=== PATIENT | male | born 1980 | race African-American/Black ===

== ENCOUNTER 2019-04-22 09:34 | Emergency (ER) | payer SELFPAY ==
--- NOTE | 2019-04-22 09:55 | ER Document Report ---
ED Medical Screen (RME) - General Chief Complaint: Epigastric Pain Stated Complaint: ABDOMINAL PAIN, SIDE PAIN Time Seen by Provider: 04/22/19 09:48 Primary Care Provider: BERT PARKER [Primary Care Provider] - Follow up as needed Mode of Arrival: Ambulatory Information source: Patient Notes: Patient is a 39-year-old male with past medical history of pancreatitis pres enting to the emergency department with abdominal pain and dysuria. Patient reports he has pain in the epigastric area as well as the lower abdomen. He reports over the last 3 days he has developed a sharp stabbing pain when he urinates. He states that his symptoms are very similar to when he had pancreatitis in the past. Patient denies any fevers, denies any vomiting but does report that he coughed up blood a few times. Exam: Abdomen nontender with palpation. I have greeted and performed a rapid initial assessment of this patient. A comprehensive ED assessment and evaluation of the patient, analysis of test results and completion of the medical decision making process will be conducted by additional ED providers. I have specifically instructed the patient or family members with the patient to immediately return to any nursing staff should anything change in the patient's condition or with their chief complaint. This medical record was dictated with voice recognizing software. There may be grammatical, syntax errors that are unintended. TRAVEL OUTSIDE OF THE [place] IN LAST 30 DAYS: No - Related Data Allergies/Adverse Reactions: aspirin Allergy (Verified 04/22/19 09:44) ibuprofen Allergy (Verified 04/22/19 09:44) Past Medical History - Past Medical History Cardiac Medical History: Reports: Hx Hypertension Skin Medical History: Denies Hx MRSA Psychiatric Medical History: Reports: Hx Bipolar Disorder Past Surgical History: Reports: Hx Appendectomy, Hx Bowel Surgery - hernia repair, mesh [facility] on 10-16-12, Hx Orthopedic Surgery - right arm - Immunizations Hx Diphtheria, Pertussis, Tetanus Vaccination: Yes Physical Exam - Vital signs Vitals: Temp Pulse Resp BP Pulse Ox 98.1 F 82 18 143/97 H 96 04/22/19 09:46 04/22/19 09:46 04/22/19 09:46 04/22/19 09:46 04/22/19 09:46 Course - Vital Signs Vital signs: Temp Pulse Resp BP Pulse Ox 98.1 F 82 18 143/97 H 96 04/22/19 09:46 04/22/19 09:46 04/22/19 09:46 04/22/19 09:46 04/22/19 09:46 Doctor's Discharge - Discharge Referrals: KEITH,NO [Primary Care Provider] - Follow up as needed
[2019-04-22 10:46] LABS: ABSOLUTE BASOPHILS # (AUTO) 0.1 10^3/uL (0.0-0.2); ABSOLUTE EOSINOPHILS # (AUTO) 0.2 10^3/uL (0.0-0.6); ABSOLUTE LYMPHOCYTES (AUTO) 2.8 10^3/uL (0.5-4.7); ABSOLUTE MONOCYTES (AUTO) 0.8 10^3/uL (0.1-1.4); ABSOLUTE NEUT (AUTO) 8.8 10^3/uL (1.7-8.2); BASOPHILS % (AUTO) 0.5 % (0-2); EOSINOPHILS % (AUTO) 1.8 % (0-6); HEMATOCRIT 47.8 % (37.9-51.0); HEMOGLOBIN 16.3 g/dL (13.5-17.0); MEAN CORPUSCULAR HEMOGLOBIN 27.8 pg (27.0-33.4); MEAN CORPUSCULAR HGB CONC 34.2 g/dL (32.0-36.0); MEAN CORPUSCULAR VOLUME 81 fl (80-97); MONOCYTES % (AUTO) 6.6 % (3-13); PLATELET COUNT 264 10^3/uL (150-450); RED BLOOD COUNT 5.88 10^6/uL (4.35-5.55); SEGMENTED NEUTROPHILS % (AUTO) 69.1 % (42-78); TOTAL CELLS COUNTED % (AUTO) 100 %; WHITE BLOOD COUNT 12.7 10^3/uL (4.0-10.5)
[2019-04-22 11:06] LABS: ALBUMIN 4.6 g/dL (3.5-5.0); ALKALINE PHOSPHATASE 87 U/L (38-126); ANION GAP 10 (5-19); ASPARTATE AMINO TRANSFERASE 29 U/L (17-59); BILIRUBIN,DIRECT 0.3 mg/dL (0.0-0.4); BILIRUBIN,TOTAL 0.6 mg/dL (0.2-1.3); BLOOD UREA NITROGEN 11 mg/dL (7-20); CALCIUM 9.8 mg/dL (8.4-10.2); CARBON DIOXIDE 24 mmol/L (22-30); CHLORIDE 103 mmol/L (98-107); GLUCOSE 114 mg/dL (75-110); POTASSIUM 4.5 mmol/L (3.6-5.0)
[2019-04-22 11:23] LABS: APPEARANCE,URINE CLEAR; BILIRUBIN,URINE NEGATIVE (NEGATIVE); COLOR,URINE YELLOW; GLUCOSE, URINE NEGATIVE (NEGATIVE); KETONES,URINE NEGATIVE (NEGATIVE); LEUKOCYTE ESTERASE,URINE NEGATIVE (NEGATIVE); NITRITE,URINE NEGATIVE (NEGATIVE); PROTEIN,URINE NEGATIVE (NEGATIVE); URINE SPECIFIC GRAVITY 1.017; UROBILINOGEN,URINE NEGATIVE mg/dL (<2.0)
[2019-04-22] MEDS ORDERED: ONDANSETRON HCL INJ/PF 4 MG/2 ML SDV IV ONE (11:53)
[2019-04-22] MEDS ORDERED: NORMAL SALINE 1000 ML 1,000 ML IV ONE (11:53)
[2019-04-22] MEDS ORDERED: MORPHINE SULFATE 10 MG/ML INJ IV ONE (11:54)
--- NOTE | 2019-04-22 13:51 | ER Document Report ---
ED General - General Chief Complaint: Epigastric Pain Stated Complaint: ABDOMINAL PAIN, SIDE PAIN Time Seen by Provider: 04/22/19 09:48 Primary Care Provider: [facility] [Provider Group] - Follow up in 1 week (for PCP follow up) APRIL KOCH MD [ACTIVE STAFF] - Follow up in 1 week (for GI follow up) Mode of Arrival: Ambulatory TRAVEL OUTSIDE OF THE [place] IN LAST 30 DAYS: No - HPI Notes: 39-year-old male with history of peptic ulcer disease, pancreatitis, diabetes to the emergency department with complaints of epigastric abdominal pain with nausea and "spitting "since last week. He states that this feels a lot like his pancreatitis. He states that he has seen some blood streaked "spit". He states that he typically takes Protonix but he ran out about 2 weeks ago. He does admit that directly before his abdominal pain starting that he had a very fatty meal of fried chicken. Patient has a history of using alcohol but states that currently he does not. Denies any fevers, chills, chest pain, shortness of breath, diarrhea, urinary complaints. States he was seen a GI specialist in [place] and is supposed to go back for follow-up but he cannot because he does not have insurance. - Related Data Allergies/Adverse Reactions: aspirin Allergy (Verified 04/22/19 09:44) ibuprofen Allergy (Verified 04/22/19 09:44) Past Medical History - General Information source: Patient, Relative - Social History Smoking Status: Current Every Day Smoker Frequency of alcohol use: former Drug Abuse: None Family History: Reviewed & Not Pertinent Patient has suicidal ideation: No Patient has homicidal ideation: No - Past Medical History Cardiac Medical History: Reports: Hx Hypertension Endocrine Medical History: Reports: Hx Diabetes Mellitus Type 2 Renal/ Medical History: Denies: Hx Peritoneal Dialysis Skin Medical History: Denies Hx MRSA Psychiatric Medical History: Reports: Hx Bipolar Disorder Past Surgical History: Reports: Hx Appendectomy, Hx Bowel Surgery - hernia repair, mesh [facility] on 10-16-12, Hx Orthopedic Surgery - right arm - Immunizations Hx Diphtheria, Pertussis, Tetanus Vaccination: Yes Review of Systems - Review of Systems Constitutional: See HPI, Malaise. denies: Chills, Fever EENT: No symptoms reported Cardiovascular: denies: Chest pain, Palpitations, Orthopnea, Dyspnea, Syncope, Dizziness, Lightheaded Respiratory: denies: Cough, Short of breath Gastrointestinal: Abdominal pain, Nausea, Blood in vomit. denies: Diarrhea, Vomiting, Black stools, Rectal bleeding Genitourinary: No symptoms reported Male Genitourinary: No symptoms reported Musculoskeletal: No symptoms reported Skin: No symptoms reported Hematologic/Lymphatic: No symptoms reported Neurological/Psychological: No symptoms reported -: Yes All other systems reviewed and negative Physical Exam - Vital signs Vitals: Temp Pulse Resp BP Pulse Ox 98.1 F 82 18 143/97 H 96 04/22/19 09:46 04/22/19 09:46 04/22/19 09:46 04/22/19 09:46 04/22/19 09:46 Interpretation: Hypertensive - General General appearance: Appears well, Alert - HEENT Head: Normocephalic, Atraumatic Eyes: Normal Pupils: PERRL Ears: Normal External canal: Normal Tympanic membrane: Normal Sinus: Normal Nasal: Normal Mouth/Lips: Normal Mucous membranes: Normal Pharynx: Normal Neck: Normal - Respiratory Respiratory status: No respiratory distress Chest status: Nontender Breath sounds: Normal Chest palpation: Normal - Cardiovascular Rhythm: Regular Heart sounds: Normal auscultation Murmur: No - Abdominal Inspection: Obese Distension: No distension Bowel sounds: Normal Tenderness: Tender - Positive tenderness to palpation to the epigastrium. No tenderness to palpation over the right upper quadrant, left upper quadrant, left lower quadrant, right lower quadrant. There is no fluid wave, no tympany, no distention. There is no rebound guarding or other signs to suggest peritonitis. - Back Back: Normal, Nontender. No: CVA tenderness - Neurological Neuro grossly intact: Yes Cognition: Normal Orientation: AAOx4 Spray Coma Scale Eye Opening: Spontaneous Spray Coma Scale Verbal: Oriented [place] Coma Scale Motor: Obeys Commands [place] Coma Scale Total: 15 Speech: Normal Motor strength normal: LUE, RUE, LLE, RLE Sensory: Normal - Psychological Associated symptoms: Normal affect, Normal mood - Skin Skin Temperature: Warm Skin Moisture: Dry Skin Color: Normal Course - Re-evaluation Re-evalutation: 04/22/19 Abdomen Ultrasound 04/22/19 12:38 IMPRESSION: NORMAL RIGHT UPPER QUADRANT ULTRASOUND. Laboratory 04/22/19 04/22/19 04/22/19 10:20 10:20 10:20 WBC 12.7 H RBC 5.88 H Hgb 16.3 Hct 47.8 MCV 81 MCH 27.8 MCHC 34.2 RDW 15.0 H Plt Count 264 Seg Neutrophils % 69.1 Lymphocytes % 22.0 Monocytes % 6.6 Eosinophils % 1.8 Basophils % 0.5 Absolute Neutrophils 8.8 H Absolute Lymphocytes 2.8 Absolute Monocytes 0.8 Absolute Eosinophils 0.2 Absolute Basophils 0.1 Sodium 137.1 Potassium 4.5 Chloride 103 Carbon Dioxide 24 Anion Gap 10 BUN 11 Creatinine 1.12 Est GFR ( Amer) > 60 Est GFR (Non-Af Amer) > 60 Glucose 114 H Calcium 9.8 Total Bilirubin 0.6 Direct Bilirubin 0.3 Neonat Total Bilirubin Not Reportable Neonat Direct Bilirubin Not Reportable Neonat Indirect Bili Not Reportable AST 29 ALT 39 Alkaline Phosphatase 87 Total Protein 8.0 Albumin 4.6 Lipase 626.0 H Urine Color YELLOW Urine Appearance CLEAR Urine pH 5.0 Ur Specific [place] 1.017 Urine Protein NEGATIVE Urine Glucose (UA) NEGATIVE Urine Ketones NEGATIVE Urine Blood SMALL H Urine Nitrite NEGATIVE Urine Bilirubin NEGATIVE Urine Urobilinogen NEGATIVE Ur Leukocyte Esterase NEGATIVE Urine WBC (Auto) 2 Urine RBC (Auto) 1 Urine Mucus (Auto) RARE Urine Ascorbic Acid NEGATIVE Impression: Pancreatitis, mild at bestlipase is in 600s. Patient has a white count of 12 but he has no fever, tachycardia, hypotension, tachypnea, or hypoxi a. He is feeling much better after pain control. He is tolerating clear liquids without any issues. Plan will be to discharge patient home and have him take down clear liquids for the next 24 to 48 hours. Will provide pain control and nausea relief. He has a reassuring H&H despite his history of blood suspect "spit". We will also send home with Protonix. I have given him information for GI specialist locally. We will have him follow-up with primary care. He is encouraged to return here if he has any worsening pain, intractable vomiting, intractable pain, fevers, chills, chest pain, shortness of breath, passing out. Patient agrees with the plan - Vital Signs Vital signs: Temp Pulse Resp BP Pulse Ox 98.0 F 64 16 149/95 H 100 04/22/19 15:54 04/22/19 15:54 04/22/19 15:54 04/22/19 15:54 04/22/19 15:54 - Laboratory Result Diagrams: 04/22/19 10:20 04/22/19 10:20 Laboratory results interpreted by me: 04/22/19 04/22/19 04/22/19 10:20 10:20 10:20 WBC 12.7 H RBC 5.88 H RDW 15.0 H Absolute Neutrophils 8.8 H Glucose 114 H Lipase 626.0 H Urine Blood SMALL H - Diagnostic Test Radiology reviewed: Image reviewed, Reports reviewed Discharge - Discharge Clinical Impression: Epigastric pain, History of peptic ulcer disease Pancreatitis Qualifiers: Chronicity: acute Pancreatitis type: unspecified pancreatitis type Acute pancreatitis complication: unspecified Qualified Code(s): K85.90 - Acute pancreatitis without necrosis or infection, unspecified Condition: Stable Disposition: HOME, SELF-CARE Instructions: Pancreatitis ([facility]) Additional Instructions: CLEAR LIQUIDS ONLY FOR THE NEXT 24-48 HOURS. PUSH FLUIDS. TAKE MEDICINES PRESCRIBED. FOLLOW UP WITH PRIMARY CARE AND GI WITHOUT FAIL. RETURN IMMEDIATELY IF WORSENING PAIN, FEVERS, CHILLS, CHEST PAIN, INTRACTABLE VOMITING, NEHEMIAH BLOOD IN VOMIT, OR ANY OTHER COMPLAINTS. Prescriptions: Ondansetron [Zofran Odt 4 mg Tablet] 1 - 2 tab PO Q4H PRN #15 tab.rapdis PRN Reason: For Nausea/Vomiting Oxycodone HCl/Acetaminophen [Percocet 5-325 mg Tablet] 1 - 2 tab PO Q6H PRN #10 tablet PRN Reason: Pantoprazole Sodium [Protonix] 40 mg PO BID #30 tablet. Referrals: APRIL KOCH MD [ACTIVE STAFF] - Follow up in 1 week (for GI follow up) [facility] [Provider Group] - Follow up in 1 week (for PCP follow up)
--- NOTE | 2019-04-22 15:37 | RADIOLOGY REPORT (SQ) ---
EXAM DESCRIPTION: U/S ABDOMEN LIMITED W/O DOP COMPLETED DATE/TIME: 04/22/2019 3:08 pm REASON FOR STUDY: abd pain, elevated lipase COMPARISON: None. TECHNIQUE: Dynamic and static grayscale images acquired of the abdomen and recorded on PACS. Additio nal selected color Doppler and spectral images recorded. LIMITATIONS: Midline bowel gas FINDINGS: PANCREAS: Midline pancreas unremarkable LIVER: No masses. Echotexture normal. LIVER VASCULATURE: Normal directional flow of the main portal vein and hepatic veins. GALLBLADDER: No gallstones. There are prominent folds along the gallbladder fundus with a Phrygian c ap. No pericholecystic fluid. No gross gallbladder wall thickening. ULTRASOUND-DETECTED WELLS'S SIGN: Negative. INTRAHEPATIC DUCTS AND COMMON DUCT: CBD and intrahepatic ducts normal caliber. No filling defects. INFERIOR VENA CAVA: Normal flow. AORTA: No aneurysm. RIGHT KIDNEY: Normal size. Normal echogenicity. No solid or suspicious masses. No hydronephrosis. No calcifications. PERITONEAL AND RIGHT PLEURAL SPACE: No ascites or effusions. OTHER: No other significant findings. IMPRESSION: NORMAL RIGHT UPPER QUADRANT ULTRASOUND. TECHNICAL DOCUMENTATION: JOB ID: [id number] [employer]- All Rights Reserved Reading location - IP/workstation name: [email or web address]
[2019-04-22 15:58] VITALS: BP 149/95
== END 2019-04-22 15:58 | disposition home or self-care (01) ==
LOC: ER 09:34
DX: K85.90 Acute pancreatitis without necrosis or infection, unspecified (principal); R10.13 Epigastric pain; R10.816 Epigastric abdominal tenderness; R04.2 Hemoptysis; K92.0 Hematemesis; I10 Essential (primary) hypertension; E11.9 Type 2 diabetes mellitus without complications; Z87.11 Personal history of peptic ulcer disease; Z88.6 Allergy status to analgesic agent; Z90.49 Acquired absence of other specified parts of digestive tract
CPT/HCPCS: 99284; 96361; 96374; 96375; 36415; 83690; 85025; 80053; 81001; 76705; J2270; J2405; J7030

== ENCOUNTER 2019-12-10 18:55 | Emergency (ER) | payer SELFPAY ==
[2019-12-10] MEDS ORDERED: NORMAL SALINE 1000 ML 1,000 ML IV ONE (19:13)
--- NOTE | 2019-12-10 19:13 | ER Document Report ---
ED Medical Screen (RME) - General Chief Complaint: Epigastric Pain Stated Complaint: ABDOMINAL PAIN/SWOLLEN THROAT Time Seen by Provider: 12/10/19 19:05 Notes: Patient is a 39-year-old male who presents the emergency department with a chief complaint of epigastric pain. He states that his pain started in his mid epigastric area and pain has now traveled to his throat area. Denies any difficulty breathing. Patient does have history of pancreatitis in the past. Yesterday he drinks 2 40 ounce natural light beers. He had not drank for a while, but ended up drinking last night. He has history of alcohol abuse. He is a current everyday smoker, but at 5 cigarettes a day. Patient is also a diabetic and has hypertension, but does not take medications. Exam: Tender mid epigastric area. I have greeted and performed a rapid initial assessment of this patient. A comprehensive ED assessment and evaluation of the patient, analysis of test results and completion of medical decision making process will be conducted by an additional ED providers. TRAVEL OUTSIDE OF THE [place] IN LAST 30 DAYS: No - Related Data Allergies/Adverse Reactions: aspirin Adverse Reaction (Verified 12/10/19 19:00) has throat ulcers ibuprofen Adverse Reaction (Verified 12/10/19 19:00) has throat ulcers Home Medications: denies Past Medical History - Social History Chew tobacco use (# tins/day): No Frequency of alcohol use: Rare Drug Abuse: None - Past Medical History Cardiac Medical History: Reports: Hx Hypertension Endocrine Medical History: Reports: Hx Diabetes Mellitus Type 2 Renal/ Medical History: Denies: Hx Peritoneal Dialysis Skin Medical History: Denies Hx MRSA Psychiatric Medical History: Reports: Hx Bipolar Disorder Past Surgical History: Reports: Hx Appendectomy, Hx Bowel Surgery - hernia repair, mesh [facility] on 10-16-12, Hx Orthopedic Surgery - right arm - Immunizations Hx Diphtheria, Pertussis, Tetanus Vaccination: Yes Physical Exam - Vital signs Vitals: Temp Pulse Resp BP Pulse Ox 98.4 F 113 H 18 169/109 H 98 12/10/19 18:58 12/10/19 18:58 12/10/19 18:58 12/10/19 18:58 12/10/19 18:58 Course - Vital Signs Vital signs: Temp Pulse Resp BP Pulse Ox 98.4 F 113 H 18 169/109 H 98 12/10/19 18:58 12/10/19 18:58 12/10/19 18:58 12/10/19 18:58 12/10/19 18:58
[2019-12-10] MEDS ORDERED: METOCLOPRAMIDE HCL ORAL SOLN 10 MG/10 ML UDCUP PO ONE (19:47)
[2019-12-10] MEDS ORDERED: LIDOCAINE 2% VISCOUS SOLN 15 ML UDCUP PO ONE (19:47)
[2019-12-10] MEDS ORDERED: MAG HYDROX/AL HYDROX/SIMETH SUSP 30 ML UDCUP PO ONE (19:47)
[2019-12-10] MEDS ORDERED: MORPHINE SULFATE 10 MG/ML INJ IV ONE (19:48)
[2019-12-10 19:52] LABS: APPEARANCE,URINE CLEAR; BILIRUBIN,URINE NEGATIVE (NEGATIVE); COLOR,URINE YELLOW; GLUCOSE, URINE NEGATIVE (NEGATIVE); KETONES,URINE NEGATIVE (NEGATIVE); LEUKOCYTE ESTERASE,URINE NEGATIVE (NEGATIVE); NITRITE,URINE NEGATIVE (NEGATIVE); PROTEIN,URINE NEGATIVE (NEGATIVE); UROBILINOGEN,URINE NEGATIVE mg/dL (<2.0)
--- NOTE | 2019-12-10 20:14 | RADIOLOGY REPORT (SQ) ---
CLINICAL INDICATION: epigastric pain. TECHNIQUE: A single portable AP view was obtained of the chest at 1947 hours. COMPARISON: None. FINDINGS: The cardiomediastinal silhouette is prominent. The lungs are grossly clear. No evidence of effusion or pneumothorax. The visualized bones are unremarkable. Mild chronic change IMPRESSION: No evidence of active intrathoracic disease. Presumed chronic streaky change
[2019-12-10 20:30] LABS: ABSOLUTE BASOPHILS # (AUTO) 0.1 10^3/uL (0.0-0.2); ABSOLUTE EOSINOPHILS # (AUTO) 0.2 10^3/uL (0.0-0.6); ABSOLUTE LYMPHOCYTES (AUTO) 2.5 10^3/uL (0.5-4.7); ABSOLUTE MONOCYTES (AUTO) 1.2 10^3/uL (0.1-1.4); ABSOLUTE NEUT (AUTO) 12.1 10^3/uL (1.7-8.2); BASOPHILS % (AUTO) 0.5 % (0-2); EOSINOPHILS % (AUTO) 1.3 % (0-6); HEMATOCRIT 44.4 % (37.9-51.0); HEMOGLOBIN 15.8 g/dL (13.5-17.0); LYMPHOCYTES % (AUTO) 15.6 % (13-45); MEAN CORPUSCULAR HEMOGLOBIN 29.1 pg (27.0-33.4); MEAN CORPUSCULAR HGB CONC 35.5 g/dL (32.0-36.0); MEAN CORPUSCULAR VOLUME 82 fl (80-97); MONOCYTES % (AUTO) 7.5 % (3-13); PLATELET COUNT 258 10^3/uL (150-450); RED BLOOD COUNT 5.42 10^6/uL (4.35-5.55); RED CELL DISTRIBUTION WIDTH 15.6 % (11.5-14.0); SEGMENTED NEUTROPHILS % (AUTO) 75.1 % (42-78); TOTAL CELLS COUNTED % (AUTO) 100 %; WHITE BLOOD COUNT 16.1 10^3/uL (4.0-10.5)
[2019-12-10 20:43] LABS: ALBUMIN 4.2 g/dL (3.5-5.0); ALKALINE PHOSPHATASE 125 U/L (38-126); ANION GAP 9 (5-19); ASPARTATE AMINO TRANSFERASE 21 U/L (17-59); BILIRUBIN,DIRECT 0.3 mg/dL (0.0-0.4); BILIRUBIN,TOTAL 0.4 mg/dL (0.2-1.3); BLOOD UREA NITROGEN 15 mg/dL (7-20); CALCIUM 9.7 mg/dL (8.4-10.2); CARBON DIOXIDE 24 mmol/L (22-30); CHLORIDE 104 mmol/L (98-107); GLUCOSE 104 mg/dL (75-110); POTASSIUM 4.3 mmol/L (3.6-5.0); TOTAL PROTEIN 7.7 g/dL (6.3-8.2)
--- NOTE | 2019-12-10 20:51 | ER Document Report ---
ED General - General Chief Complaint: Epigastric Pain Stated Complaint: ABDOMINAL PAIN/SWOLLEN THROAT Time Seen by Provider: 12/10/19 19:05 Mode of Arrival: Ambulatory Information source: Patient TRAVEL OUTSIDE OF THE [place] IN LAST 30 DAYS: No - HPI Onset: Other - since this morning around 8am Onset/Duration: Gradual Quality of pain: Sharp Severity: Moderate Associated symptoms: Sore throat, Other - abdominal pain Exacerbated by: Food Relieved by: Denies Similar symptoms previously: Yes - with pancreatitis flares in the past Recently seen / treated by doctor: No Notes: 39 year old male with a history of Chronic Pancreatitis, GERD/Peptic Ulcer Disease, Hernia Surgeries, Appendectomy here for epigastric abdominal pain which started this morning. The patient says he hasnt drank in alcohol in about 6 months and last night he had two large beers. The patient denies fevers, chills, sweats, nausea, vomiting, diarrhea. The patient says this feels like pancreatitis to him. The patient also has had a sore throat and he feels like his throat is slightly swollen for the last couple days. The patient says his child recently had Strep Throat in the last 1-2 weeks. - Related Data Allergies/Adverse Reactions: aspirin Adverse Reaction (Verified 12/10/19 19:00) has throat ulcers ibuprofen Adverse Reaction (Verified 12/10/19 19:00) has throat ulcers Home Medications: denies Past Medical History - General Information source: Patient - Social History Smoking Status: Current Every Day Smoker Chew tobacco use (# tins/day): No Frequency of alcohol use: Rare Drug Abuse: None Family History: Reviewed & Not Pertinent Patient has suicidal ideation: No Patient has homicidal ideation: No - Past Medical History Cardiac Medical History: Reports: Hx Hypercholesterolemia, Hx Hypertension Endocrine Medical History: Reports: Hx Diabetes Mellitus Type 2 Renal/ Medical History: Denies: Hx Peritoneal Dialysis GI Medical History: Reports: Hx Hiatal Hernia Skin Medical History: Denies Hx MRSA Psychiatric Medical History: Reports: Hx Bipolar Disorder Past Surgical History: Reports: Hx Appendectomy, Hx Bowel Surgery - hernia repair, mesh [facility] on 10-16-12, Hx Orthopedic Surgery - right arm - Immunizations Hx Diphtheria, Pertussis, Tetanus Vaccination: Yes Review of Systems - Review of Systems Constitutional: No symptoms reported EENT: Throat pain Cardiovascular: No symptoms reported Gastrointestinal: Abdominal pain - epigastric Genitourinary: No symptoms reported Male Genitourinary: No symptoms reported Musculoskeletal: No symptoms reported Skin: No symptoms reported Hematologic/Lymphatic: No symptoms reported Neurological/Psychological: No symptoms reported -: Yes All other systems reviewed and negative Physical Exam - Vital signs Vitals: Temp Pulse Resp BP Pulse Ox 98.4 F 113 H 18 169/109 H 98 12/10/19 18:58 12/10/19 18:58 12/10/19 18:58 12/10/19 18:58 12/10/19 18:58 - Notes Notes: GENERAL: Well-appearing, well-nourished and in no acute distress. HEAD: Atraumatic, normocephalic. EYES: Pupils equal round and reactive to light, extraocular movements intact, sclera anicteric, conjunctiva are normal. ENT: Nares patent, oropharynx is erythematous and tonsils are mildly swollen but without exudates. Uvular normal and midline. Moist mucous membranes. NECK: Normal range of motion, supple without lymphadenopathy or JVD. LUNGS: Breath sounds clear to auscultation bilaterally and equal. No wheezes rales or rhonchi. HEART: Regular rate and rhythm without murmurs, rubs or gallops. ABDOMEN: Soft, mild epigastric tenderness, normoactive bowel sounds. No guarding, no rebound. No masses appreciated. EXTREMITIES: Normal range of motion, no pitting or edema. No clubbing or cyanosis. NEUROLOGICAL: Cranial nerves II through XII grossly intact. Normal speech, normal gait. PSYCH: Normal mood, normal affect. SKIN: Warm, Dry, normal turgor, no rashes or lesions noted. Course - Re-evaluation Re-evalutation: 12/10/19 21:03 The patient is here for epigastric pain which he says is consistent with chronic pancreatitis. He felt much better after IV Fluids, IV Morphine and a GI Cocktail. The patient also has a strep throat which was treated with IM Penicillin. Patient told to follow up with a PCP and to stop drinking. 12/10/19 21:34 Patient has no abdominal pain at time of discharge. - Vital Signs Vital signs: Temp Pulse Resp BP Pulse Ox 98.4 F 113 H 18 169/109 H 98 12/10/19 18:58 12/10/19 18:58 12/10/19 18:58 12/10/19 18:58 12/10/19 18:58 - Laboratory Result Diagrams: 12/10/19 19:55 12/10/19 19:55 Laboratory results interpreted by me: 12/10/19 12/10/19 12/10/19 19:20 19:55 19:55 WBC 16.1 H RDW 15.6 H Absolute Neuts (auto) 12.1 H Sodium 136.6 L Lipase 659.6 H Urine Blood MODERATE H - Diagnostic Test Radiology reviewed: Image reviewed, Reports reviewed - EKG Interpretation by Me EKG shows normal: Sinus rhythm, Intervals, QRS Complexes Rate: Normal Rhythm: NSR [place]/QRS: Left axis deviation Discharge - Discharge Clinical Impression: Strep throat Pancreatitis Qualifiers: Chronicity: chronic Pancreatitis type: alcohol induced Qualified Code(s): K86.0 - Alcohol-induced chronic pancreatitis Condition: Stable Disposition: HOME, SELF-CARE Instructions: Strep Throat ([facility]), Pancreatitis ([facility]) Additional Instructions: Use Tylenol for pain and eat a bland diet in the days to come. Refrain from drinking alcohol. Follow up with your primary care doctor. If you dont have primary care doctor, follow up with one of the clinics listed in your paperwork. Referrals: RICHARD FARAH MD [COMMUNITY BASED STAFF] - Follow up as needed
[2019-12-10] MEDS ORDERED: PENICILLIN G BENZATHINE 1.2 MILLION UNIT/2 ML DISP.SYRIN IM ONE (21:28)
[2019-12-10 22:21] VITALS: BP 137/92
--- NOTE | 2019-12-11 08:24 | EKG REPORT ---
SEVERITY:- BORDERLINE ECG - SINUS TACHYCARDIA BORDERLINE LEFT AXIS DEVIATION LA ABNORMALITY : Confirmed by: Kenan Corral MD 11-Dec-2019 08:23:15
== END 2019-12-10 22:21 | disposition home or self-care (01) ==
LOC: ER 18:55
DX: J02.0 Streptococcal pharyngitis (principal); K86.0 Alcohol-induced chronic pancreatitis; R10.13 Epigastric pain; F17.200 Nicotine dependence, unspecified, uncomplicated; I10 Essential (primary) hypertension; E78.00 Pure hypercholesterolemia, unspecified; E11.9 Type 2 diabetes mellitus without complications; Z88.6 Allergy status to analgesic agent
CPT/HCPCS: 93005; 99284; 96372; 96374; 36415; 87880; 83690; 85025; 80053; 81001; 84484; 71045; 93010; J3490; J2270; J0561; J7030; 96361

== ENCOUNTER 2020-01-20 01:43 | Emergency (ER) | payer SELFPAY ==
[2020-01-20 02:02] VITALS: BP 171/108
[2020-01-20 02:17] LABS: APPEARANCE,URINE CLEAR; BILIRUBIN,URINE NEGATIVE (NEGATIVE); COLOR,URINE YELLOW; GLUCOSE, URINE NEGATIVE (NEGATIVE); KETONES,URINE NEGATIVE (NEGATIVE); LEUKOCYTE ESTERASE,URINE NEGATIVE (NEGATIVE); NITRITE,URINE NEGATIVE (NEGATIVE); PROTEIN,URINE NEGATIVE (NEGATIVE); URINE SPECIFIC GRAVITY 1.019; UROBILINOGEN,URINE NEGATIVE mg/dL (<2.0)
[2020-01-20 04:56] LABS: ABSOLUTE BASOPHILS # (AUTO) 0.1 10^3/uL (0.0-0.2); ABSOLUTE EOSINOPHILS # (AUTO) 0.3 10^3/uL (0.0-0.6); ABSOLUTE LYMPHOCYTES (AUTO) 2.9 10^3/uL (0.5-4.7); ABSOLUTE MONOCYTES (AUTO) 0.9 10^3/uL (0.1-1.4); ABSOLUTE NEUT (AUTO) 5.9 10^3/uL (1.7-8.2); BASOPHILS % (AUTO) 0.7 % (0-2); HEMOGLOBIN 16.2 g/dL (13.5-17.0); LYMPHOCYTES % (AUTO) 28.8 % (13-45); MEAN CORPUSCULAR HGB CONC 36.1 g/dL (32.0-36.0); MEAN CORPUSCULAR VOLUME 80 fl (80-97); MONOCYTES % (AUTO) 8.7 % (3-13); PLATELET COUNT 253 10^3/uL (150-450); RED CELL DISTRIBUTION WIDTH 15.2 % (11.5-14.0); SEGMENTED NEUTROPHILS % (AUTO) 58.8 % (42-78); TOTAL CELLS COUNTED % (AUTO) 100 %
[2020-01-20 05:13] LABS: ALBUMIN 4.4 g/dL (3.5-5.0); ALKALINE PHOSPHATASE 95 U/L (38-126); ANION GAP 9 (5-19); ASPARTATE AMINO TRANSFERASE 25 U/L (17-59); BILIRUBIN,TOTAL 0.6 mg/dL (0.2-1.3); BLOOD UREA NITROGEN 13 mg/dL (7-20); CALCIUM 9.8 mg/dL (8.4-10.2); CARBON DIOXIDE 23 mmol/L (22-30); CHLORIDE 105 mmol/L (98-107); GLUCOSE 116 mg/dL (75-110); POTASSIUM 4.4 mmol/L (3.6-5.0); TOTAL PROTEIN 7.6 g/dL (6.3-8.2)
== END 2020-01-20 07:30 | disposition left against medical advice (07) ==
LOC: ER 01:43
DX: Z53.21 Procedure and treatment not carried out due to patient leaving prior to being seen by health care provider (principal)
CPT/HCPCS: 36415; 80053; 81001; 83690; 85025

== ENCOUNTER 2020-05-06 14:56 | Emergency (ER) | payer SELFPAY ==
[2020-05-06 15:11] VITALS: BP 179/115
[2020-05-06] MEDS ORDERED: ONDANSETRON 4 MG TAB.RAPDIS PO ONE ×2 (16:14→18:33)
[2020-05-06] MEDS ORDERED: RINGERS SOLUTION,LACTATED 1,000 ML IV ONE (16:14)
[2020-05-06] MEDS ORDERED: MORPHINE SULFATE 10 MG/ML INJ IV ONE ×2 (16:14→18:33)
--- NOTE | 2020-05-06 16:16 | ER Document Report ---
ED Medical Screen (RME) - General Chief Complaint: Abdominal Pain Stated Complaint: ABDOMINAL PAIN/SWELLING Time Seen by Provider: 05/06/20 16:09 Mode of Arrival: Ambulatory Information source: Patient Notes: HPI; 40-year-old male history of hypertension, diabetes, pancreatitis presents emergency room complaining of worsening generalized abdominal pain for the past 2 to 3 days. States he had similar episode 2 weeks ago was seen in [place] was diagnosed with pancreatitis. Was discharged home on hydrocodone. States he took the hydrocodone for a few days and then developed a rash. States symptoms improved until 2 to 3 days ago. Only taking anything for his pain. Complains of nausea and vomiting. No urinary symptoms. No fevers. No other recent travel. No COVID-19 exposure PE: Alert and oriented x3. Lungs: Clear to auscultation without rales, rhonchi, wheezes. Heart: Regular rate and rhythm without murmurs, rubs, gallops. I have greeted and performed a rapid initial assessment of this patient. A comprehensive ED assessment and evaluation of the patient, analysis of test results and completion of the medical decision making process will be conducted by additional ED providers. I have specifically instructed the patient or family members with the patient to immediately return to any nursing staff should anything change in the patient's condition or with their chief complaint. TRAVEL OUTSIDE OF THE [place] IN LAST 30 DAYS: No - Related Data Allergies/Adverse Reactions: aspirin Adverse Reaction (Verified 01/20/20 01:55) has throat ulcers ibuprofen Adverse Reaction (Verified 01/20/20 01:55) has throat ulcers Past Medical History - Past Medical History Cardiac Medical History: Reports: Hx Hypercholesterolemia, Hx Hypertension Endocrine Medical History: Reports: Hx Diabetes Mellitus Type 2 Renal/ Medical History: Denies: Hx Peritoneal Dialysis GI Medical History: Reports: Hx Hiatal Hernia Skin Medical History: Denies Hx MRSA Psychiatric Medical History: Reports: Hx Bipolar Disorder Past Surgical History: Reports: Hx Appendectomy, Hx Bowel Surgery - hernia repa ir, mesh [facility] on 10-16-12, Hx Orthopedic Surgery - right arm - Immunizations Hx Diphtheria, Pertussis, Tetanus Vaccination: Yes Physical Exam - Vital signs Vitals: Temp Pulse Resp BP Pulse Ox 97.9 F 92 16 179/115 H 100 05/06/20 15:06 05/06/20 15:06 05/06/20 15:06 05/06/20 15:06 05/06/20 15:06 Course - Vital Signs Vital signs: Temp Pulse Resp BP Pulse Ox 97.9 F 92 16 179/115 H 100 05/06/20 15:06 05/06/20 15:06 05/06/20 15:06 05/06/20 15:06 05/06/20 15:06
[2020-05-06 16:35] LABS: ABSOLUTE BASOPHILS # (AUTO) 0.1 10^3/uL (0.0-0.2); ABSOLUTE EOSINOPHILS # (AUTO) 0.2 10^3/uL (0.0-0.6); ABSOLUTE LYMPHOCYTES (AUTO) 2.1 10^3/uL (0.5-4.7); ABSOLUTE MONOCYTES (AUTO) 0.7 10^3/uL (0.1-1.4); ABSOLUTE NEUT (AUTO) 5.6 10^3/uL (1.7-8.2); BASOPHILS % (AUTO) 0.7 % (0-2); EOSINOPHILS % (AUTO) 2.6 % (0-6); HEMATOCRIT 45.4 % (37.9-51.0); HEMOGLOBIN 15.6 g/dL (13.5-17.0); LYMPHOCYTES % (AUTO) 24.6 % (13-45); MEAN CORPUSCULAR HEMOGLOBIN 28.2 pg (27.0-33.4); MEAN CORPUSCULAR HGB CONC 34.3 g/dL (32.0-36.0); MEAN CORPUSCULAR VOLUME 82 fl (80-97); MONOCYTES % (AUTO) 8.3 % (3-13); PLATELET COUNT 243 10^3/uL (150-450); RED BLOOD COUNT 5.52 10^6/uL (4.35-5.55); RED CELL DISTRIBUTION WIDTH 15.5 % (11.5-14.0); SEGMENTED NEUTROPHILS % (AUTO) 63.8 % (42-78); TOTAL CELLS COUNTED % (AUTO) 100 %; WHITE BLOOD COUNT 8.7 10^3/uL (4.0-10.5)
[2020-05-06 16:45] LABS: APPEARANCE,URINE CLEAR; BILIRUBIN,URINE NEGATIVE (NEGATIVE); COLOR,URINE YELLOW; GLUCOSE, URINE NEGATIVE (NEGATIVE); KETONES,URINE NEGATIVE (NEGATIVE); LEUKOCYTE ESTERASE,URINE NEGATIVE (NEGATIVE); NITRITE,URINE NEGATIVE (NEGATIVE); PROTEIN,URINE NEGATIVE (NEGATIVE); URINE SPECIFIC GRAVITY 1.016; UROBILINOGEN,URINE NEGATIVE mg/dL (<2.0)
[2020-05-06 16:54] LABS: ALBUMIN 4.3 g/dL (3.5-5.0); ALKALINE PHOSPHATASE 117 U/L (38-126); ANION GAP 7 (5-19); ASPARTATE AMINO TRANSFERASE 26 U/L (17-59); BILIRUBIN,TOTAL 0.4 mg/dL (0.2-1.3); BLOOD UREA NITROGEN 10 mg/dL (7-20); CALCIUM 9.5 mg/dL (8.4-10.2); CARBON DIOXIDE 25 mmol/L (22-30); CHLORIDE 108 mmol/L (98-107); GLUCOSE 108 mg/dL (75-110); POTASSIUM 4.4 mmol/L (3.6-5.0); TOTAL PROTEIN 7.7 g/dL (6.3-8.2)
--- NOTE | 2020-05-06 20:56 | RADIOLOGY REPORT (SQ) ---
CT ABDOMEN PELVIS WITH IV CONTRAST HISTORY: Abdominal pain. COMPARISON: None. TECHNIQUE: CT scan of the abdomen and pelvis was performed with IV contrast. This exam was performed according to our departmental dose-optimization program, which includes automated exposure control, adjustment of the mA and/or kV according to patient size and/or use of iterative reconstruction technique. FINDINGS: The lung bases are clear. No pleural or pericardial effusions. There is no hiatal hernia. There has been a prior cholecystectomy. The liver, spleen, pancreas, adrenal glands, and kidneys are unremarkable. No hydronephrosis or urinary stones are seen. The pelvic organs are also unremarkable. The stomach and duodenum are unremarkable. No small bowel obstruction. There has been a prior appendectomy. No evidence of acute diverticulitis. No adenopathy, free fluid, or free air is identified. The aorta is normal in caliber. No acute bony findings are seen. There are small fat-containing ventral hernias. IMPRESSION: No acute abdominal or pelvic findings.
[2020-05-06] MEDS ORDERED: PROMETHAZINE HCL 25 MG TABLET PO ONE (21:18)
[2020-05-06] MEDS ORDERED: OXYCODONE HCL IR 5 MG TABLET PO ONE (21:18)
[2020-05-06] MEDS ORDERED: SUCRALFATE 1 GM TABLET PO ONE (21:18)
--- NOTE | 2020-05-06 21:25 | ER Document Report ---
ED GI/ - General Chief Complaint: Abdominal Pain Stated Complaint: ABDOMINAL PAIN/SWELLING Time Seen by Provider: 05/06/20 16:09 Primary Care Provider: [facility] [Provider Group] - Follow up in 1 week GENE QUIÑONES MD [ACTIVE STAFF] - Follow up in 1 week Mode of Arrival: Ambulatory Notes: Patient is a 40-year-old male that comes to the emergency department for chief complaint of upper abdominal pain that radiates to the left side and slightly into the back. He states he vomited yesterday but not today. Patient was actually seen in [place], diagnosed with pancreatitis, prescribed medications including hydrocodone, he states that hydrocodone gives him a rash so he stopped taking it. He states he felt better for a few days but the pain started coming back today. Patient denies hematemesis, reports normal bowel movements, denies fever, denies chest pain. Patient has a history of peptic ulcer disease and used to be on Protonix but currently is not, he does admit to caffeine but denies NSAIDs or alcohol. He states he had an endoscopy in the past showing the ulcers. Patient is treated for type 2 diabetes with metformin and hypertension with clonidine only. He has a history of ventral hernia repair with mesh, cholecystectomy, appendectomy. TRAVEL OUTSIDE OF THE [place] IN LAST 30 DAYS: No - Related Data Allergies/Adverse Reactions: aspirin Adverse Reaction (Verified 01/20/20 01:55) has throat ulcers ibuprofen Adverse Reaction (Verified 01/20/20 01:55) has throat ulcers Home Medications: Metformin, Clonidine Past Medical History - General Information source: Patient - Social History Smoking Status: Never Smoker Frequency of alcohol use: None Drug Abuse: None Lives with: Family Family History: Reviewed & Not Pertinent - Past Medical History Cardiac Medical History: Reports: Hx Hypercholesterolemia, Hx Hypertension Endocrine Medical History: Reports: Hx Diabetes Mellitus Type 2 Renal/ Medical History: Denies: Hx Peritoneal Dialysis GI Medical History: Reports: Hx Gastroesophageal Reflux Disease, Hx Hiatal Hernia, Hx Ulcer - Peptic ulcer Skin Medical History: Denies Hx MRSA Psychiatric Medical History: Reports: Hx Bipolar Disorder Past Surgical History: Reports: Hx Appendectomy, Hx Bowel Surgery - hernia repair, mesh [facility] on 10-16-12, Hx Orthopedic Surgery - right arm - Immunizations Hx Diphtheria, Pertussis, Tetanus Vaccination: Yes Review of Systems - Review of Systems Constitutional: No symptoms reported EENT: No symptoms reported Cardiovascular: No symptoms reported Respiratory: No symptoms reported Gastrointestinal: See HPI Genitourinary: No symptoms reported Male Genitourinary: No symptoms reported Musculoskeletal: No symptoms reported Skin: No symptoms reported Hematologic/Lymphatic: No symptoms reported Neurological/Psychological: No symptoms reported Physical Exam - Vital signs Vitals: Temp Pulse Resp BP Pulse Ox 97.9 F 92 16 179/115 H 100 05/06/20 15:06 05/06/20 15:06 05/06/20 15:06 05/06/20 15:06 05/06/20 15:06 - Notes Notes: GENERAL: Alert, interacts well. No acute distress. HEAD: Normocephalic, atraumatic. EYES: Pupils equal, round, and reactive to light. Extraocular movements intact. ENT: Oral mucosa moist, tongue midline. Oropharynx unremarkable. Airway patent. NECK: Full range of motion. Supple. Trachea midline. No lymphadenopathy. LUNGS: Clear to auscultation bilaterally, no wheezes, rales, or rhonchi. No respiratory distress. Non-tender chest wall. HEART: Regular rate and rhythm. No murmur ABDOMEN: Epigastric tenderness and generalized upper abdominal tenderness, nonspecific, no guarding. There is a long horizontal scar in the right upper abdomen and then a vertical scar noted as well. There is a soft nontender ventral supraumbilical hernia. Bowel sounds present. Unremarkable otherwise. GENITOURINARY: Deferred EXTREMITIES: Moves all 4 extremities spontaneously. No edema, normal radial and dorsalis pedis pulses bilaterally. No cyanosis. BACK: no cervical, thoracic, lumbar midline tenderness. No saddle anesthesia, normal distal neurovascular exam. Moves all extremities in full range of motion. NEUROLOGICAL: Alert and oriented x3. Normal speech. Cranial nerves II through XII grossly intact. Strength 5/5 in all extremities. PSYCH: Normal affect, normal mood. SKIN: Warm, dry, normal turgor. No rashes or lesions noted. Course - Re-evaluation Re-evalutation: Patient alert and well-appearing on my exam. He does have some epigastric tenderness but there his remaining abdomen is unremarkable including a soft, small, nontender ventral hernia. CBC unremarkable, chemistry unremarkable, lipase slightly elevated in the 600s. Urinalysis unremarkable. CAT scan from triage reviewed and shows no acute findings, no pancreatitis, small ventral hernias with fat only and no evidence of incarceration or obstruction. Patient given p.o. and was able to tolerate this without difficulty. Patient has had a cholecystectomy. Based on patient's work-up, lipase that is not significantly elevated, and his evaluation and history I suspect that this is gastritis/upper abdominal inflammation primarily. He has a history of hiatal hernia, peptic ulcer disease, he is out of Protonix, he admits to frequent caffeinated drinks. I discussed with patient, he will be placed on medication to heal gastritis, he will be given precautions, he will follow-up with primary care first. Patient's blood pressure is elevated here, patient states he is only on clonidine for this, he states he needs better primary care. Patient denies headache or chest pain. He was provided with referrals. Discussed return precautions at length, patient states appreciation and agreement, stable and well-appearing at time of discharge. - Vital Signs Vital signs: Temp Pulse Resp BP Pulse Ox 97.9 F 92 16 179/115 H 100 05/06/20 15:06 05/06/20 15:06 05/06/20 15:06 05/06/20 15:06 05/06/20 15:06 - Laboratory Result Diagrams: 05/06/20 16:17 05/06/20 16:17 Laboratory results interpreted by me: 05/06/20 05/06/20 05/06/20 16:17 16:17 16:17 RDW 15.5 H Chloride 108 H Lipase 647.1 H Urine Blood SMALL H Discharge - Discharge Clinical Impression: Upper abdominal pain Condition: Stable Disposition: HOME, SELF-CARE Additional Instructions: Your lipase is slightly elevated but based on your scan, your symptoms, and your work-up I suspect that you have gastritis (inflammation of your stomach back and upper gastrointestinal tract). This is most likely causing your symptoms. Take Phenergan for nausea, take Carafate and Pepcid as prescribed to help treat this, resume your Protonix, you can take additional Rolaids, Tums, Maalox, etc. if needed. You can take Tylenol for pain or the pain medication provided. Avoid NSAIDs, alcohol, smoking, caffeine, spicy food. Start with clear fluids, progress to bland diet. Follow-up with primary care for additional evaluation and treatment including management of your blood pressure and peptic ulcer disease.. Return if you worsen including uncontrolled vomiting, vomiting blood, black stools, severe pain, fever of 100.4 or greater, or any other concerning or worsening symptoms. Prescriptions: Sucralfate [Carafate 1 gm Tablet] 1 gm PO QID #20 tablet Famotidine [Pepcid 20 mg Tablet] 20 mg PO BID #20 tablet Oxycodone HCl/Acetaminophen [Percocet 5-325 mg Tablet] 1 tab PO TID PRN #8 tab PRN Reason: Promethazine HCl [Phenergan 25 mg Tablet] 25 mg PO Q6H PRN #15 tablet PRN Reason: Pantoprazole Sodium [Protonix] 40 mg PO DAILY #30 tablet.dr Forms: Elevated Blood Pressure Referrals: GENE QUIÑONES MD [ACTIVE STAFF] - Follow up in 1 week [facility] [Provider Group] - Follow up in 1 week
== END 2020-05-06 21:38 | disposition home or self-care (01) ==
LOC: ER 14:56
DX: R10.10 Upper abdominal pain, unspecified (principal); M54.9 Dorsalgia, unspecified; R11.10 Vomiting, unspecified; E11.9 Type 2 diabetes mellitus without complications; Z79.84 Long term (current) use of oral hypoglycemic drugs; Z79.899 Other long term (current) drug therapy; I10 Essential (primary) hypertension; Z88.8 Allergy status to other drugs, medicaments and biological substances
CPT/HCPCS: 99285; 96361; 96374; 36415; 83690; 85025; 80053; 81001; 74177; S0119; J2270; J7120

== ENCOUNTER 2020-08-15 01:20 | Emergency (ER) | payer SELFPAY ==
[2020-08-15] MEDS ORDERED: NORMAL SALINE 1000 ML 1,000 ML IV ONE (01:32)
--- NOTE | 2020-08-15 01:34 | ER Document Report ---
ED Medical Screen (RME) - General Chief Complaint: Chest Pain Stated Complaint: CHEST PAIN Time Seen by Provider: 08/15/20 01:28 Notes: Patient is a 40-year-old male who presents emergency department with a chief complaint of epigastric pain. Patient states that he has had his pain on and off since he had his cholecystectomy about 5 months ago. States that he has a history of pancreatitis. States that he was a former drinker does not currently drink. Exam: Tender mid upper abdomen. I have greeted and performed a rapid initial assessment of this patient. A comprehensive ED assessment and evaluation of the patient, analysis of test results and completion of medical decision making process will be conducted by an additional ED providers. TRAVEL OUTSIDE OF THE [place] IN LAST 30 DAYS: No - Related Data Allergies/Adverse Reactions: aspirin Adverse Reaction (Verified 01/20/20 01:55) has throat ulcers ibuprofen Adverse Reaction (Verified 01/20/20 01:55) has throat ulcers Past Medical History - Past Medical History Cardiac Medical History: Reports: Hx Hypercholesterolemia, Hx Hypertension Endocrine Medical History: Reports: Hx Diabetes Mellitus Type 2 Renal/ Medical History: Denies: Hx Peritoneal Dialysis GI Medical History: Reports: Hx Gastroesophageal Reflux Disease, Hx Hiatal Hernia, Hx Ulcer - Peptic ulcer Skin Medical History: Denies Hx MRSA Psychiatric Medical History: Reports: Hx Bipolar Disorder Past Surgical History: Reports: Hx Appendectomy, Hx Bowel Surgery - hernia repair, mesh [facility] on 10-16-12, Hx Orthopedic Surgery - right arm - Immunizations Hx Diphtheria, Pertussis, Tetanus Vaccination: Yes
[2020-08-15] MEDS ORDERED: HYDROMORPHONE HCL INJ/PF 2 MG/ML AMPULE IV ONE (01:38)
[2020-08-15] MEDS ORDERED: ONDANSETRON HCL INJ/PF 4 MG/2 ML SDV IV ONE (01:38)
--- NOTE | 2020-08-15 01:47 | ER Document Report ---
ED GI/ - General Chief Complaint: Abdominal Pain Stated Complaint: CHEST PAIN Time Seen by Provider: 08/15/20 01:28 Primary Care Provider: [facility] [Provider Group] - Follow up in 1 week GENE QUIÑONES MD [ACTIVE STAFF] - Follow up in 1 week Notes: Patient is a 40-year-old male who comes emergency department for chief complaint of upper abdominal pain and vomiting. Pain started yesterday, he states he vomited 5 times today. He states he saw a tiny amount of mixed in blood in his vomit, denies rasta hematemesis, denies abnormal bowel movements. He denies particular chest pain, flank pain, fever/chills. Patient reports a history of cholecystectomy, appendectomy, ventral hernia repair with mesh, former alcohol use, current smoking, peptic ulcer disease, hypertension, hyperlipidemia, type 2 diabetes, bipolar disorder. He denies recreational drugs. He does have a history of pancreatitis as well. TRAVEL OUTSIDE OF THE [place] IN LAST 30 DAYS: No - Related Data Allergies/Adverse Reactions: aspirin Adverse Reaction (Verified 01/20/20 01:55) has throat ulcers ibuprofen Adverse Reaction (Verified 01/20/20 01:55) has throat ulcers Home Medications: metformin 500mg. clonidine Past Medical History - General Information source: Patient - Social History Smoking Status: Current Every Day Smoker Chew tobacco use (# tins/day): No Smoking Education Provided: Yes - <3 min Frequency of alcohol use: None - former heavy Drug Abuse: None Lives with: Family Family History: Reviewed & Not Pertinent - Past Medical History Cardiac Medical History: Reports: Hx Hypercholesterolemia, Hx Hypertension Endocrine Medical History: Reports: Hx Diabetes Mellitus Type 2 Renal/ Medical History: Denies: Hx Peritoneal Dialysis GI Medical History: Reports: Hx Gastroesophageal Reflux Disease, Hx Hiatal Hernia, Hx Ulcer - Peptic ulcer Skin Medical History: Denies Hx MRSA Psychiatric Medical History: Reports: Hx Bipolar Disorder Past Surgical History: Reports: Hx Appendectomy, Hx Bowel Surgery - hernia repair, mesh [facility] on 10-16-12, Hx Orthopedic Surgery - right arm - Immunizations Hx Diphtheria, Pertussis, Tetanus Vaccination: Yes Review of Systems - Review of Systems Constitutional: No symptoms reported EENT: No symptoms reported Cardiovascular: No symptoms reported Respiratory: No symptoms reported Gastrointestinal: See HPI Genitourinary: No symptoms reported Male Genitourinary: No symptoms reported Musculoskeletal: No symptoms reported Skin: No symptoms reported Hematologic/Lymphatic: No symptoms reported Neurological/Psychological: No symptoms reported Physical Exam - Vital signs Vitals: Temp Pulse Resp BP Pulse Ox 98.0 F 102 H 19 171/112 H 100 08/15/20 01:36 08/15/20 01:36 08/15/20 01:36 08/15/20 01:36 08/15/20 01:36 - Notes Notes: GENERAL: Alert, interacts well. No acute distress. HEAD: Normocephalic, atraumatic. EYES: Pupils equal, round, and reactive to light. Extraocular movements intact. ENT: Oral mucosa moist, tongue midline. Oropharynx unremarkable. Airway patent. Nares patent, sinuses non-tender, ear canals unremarkable, TM's intact. NECK: Full range of motion. Supple. Trachea midline. No lymphadenopathy. LUNGS: Clear to auscultation bilaterally, no wheezes, rales, or rhonchi. No respiratory distress. Non-tender chest wall. HEART: Regular rate and rhythm. No murmur ABDOMEN: There is some mild generalized tenderness in the mid upper abdomen especially on the left. No guarding or rigidity, no distention. Bowel sounds present throughout. There is a large ventral scar in the area consistent with a soft ventral hernia but this is nontender and seems to reduced easily, there is no surrounding erythema or induration. EXTREMITIES: Moves all 4 extremities spontaneously. No edema, normal radial and dorsalis pedis pulses bilaterally. No cyanosis. BACK: no cervical, thoracic, lumbar midline tenderness. No saddle anesthesia, normal distal neurovascular exam. Moves all extremities in full range of motion. NEUROLOGICAL: Alert and oriented x3. Normal speech. Cranial nerves II through XII grossly intact. Strength 5/5 in all extremities. PSYCH: Normal affect, normal mood. SKIN: Warm, dry, normal turgor. No rashes or lesions noted. Course - Re-evaluation Re-evalutation: Patient has mild generalized tenderness of the upper abdomen mainly in the left upper abdomen. He is alert and well-appearing. He is very hypertensive off of his home medication although he was only on clonidine. He states at 1 point he was on more but he was taken off this and placed on just clonidine, he states clonidine did not work very well. Blood pressure did improve after pain medication was provided. No fever, tachycardia, or hypoxia. Chest x-ray unremarkable, EKG without acute findings, CBC unremarkable. Chemistry shows slightly low bicarbonate at 20 but otherwise unremarkable. Lipase is borderline elevated in the 700s. However this is very similar compared to prior, I saw patient a few months ago with the same presentation, there was a negative CAT scan at that time, I overall suspect patient has a recurrence of his gastritis causing vomiting and elevation of lipase, patient did not have acute pancreatitis previously. Ventral hernia over the abdomen is soft and nontender, abdomen is quite benign without any guarding, I do have a low suspicion of acute abdomen. He denies recent alcohol but he does admit to continued smoking, caffeine, anti-inflammatories. He still has not followed up with primary care but he states that he is going to. Patient tolerated p.o. medications and p.o. trial without any difficulty. I discussed at length with him. Discussed options. No additional imaging will be performed, patient will be discharged, treated for gastritis, started on amlodipine for hypertension, and he agrees to follow-up closely with primary care. I discussed return precautions at length. Patient states appreciation and agreement. Stable and well-appearing at time of discharge. - Vital Signs Vital signs: Temp Pulse Resp BP Pulse Ox 98.0 F 102 H 25 H 151/109 H 94 08/15/20 01:36 08/15/20 01:36 08/15/20 04:01 08/15/20 04:01 08/15/20 04:01 - Laboratory Result Diagrams: 08/15/20 01:57 08/15/20 01:57 Laboratory results interpreted by me: 08/15/20 08/15/20 08/15/20 01:30 01:57 01:57 WBC 11.4 H RDW 15.4 H Chloride 109 H Carbon Dioxide 20 L Glucose 132 H Lipase 776.3 H Urine Protein 30 H Urine Urobilinogen 2.0 H - EKG Interpretation by Me Additional EKG results interpreted by me: EKG shows sinus tachycardia at a rate of 103, QTc 440, left axis deviation. No T wave inversions or ST segment changes in consecutive leads. Discharge - Discharge Clinical Impression: Upper abdominal pain, Essential hypertension, Has run out of medications Vomiting Qualifiers: Vomiting type: unspecified Vomiting Intractability: non-intractable Nausea presence: with nausea Qualified Code(s): R11.2 - Nausea with vomiting, unspecified Condition: Stable Disposition: HOME, SELF-CARE Instructions: Oral Narcotic Medication ([facility]) Additional Instructions: Based on your evaluation, symptoms, work-up, and previous history I believe that you have gastritis causing your vomiting and pain. This is inflammation of the upper gastrointestinal tract. Take Phenergan for nausea, take Carafate and Pepcid as prescribed to help treat this, you can take additional Rolaids, Tums, Maalox, etc. if needed. You can take Tylenol for pain. Avoid NSAIDs, alcohol, smoking, caffeine, spicy food. Start with clear fluids, progress to bland diet. Your blood pressure needs to be controlled. We have started you on amlodipine, please see the primary care follow-up in a close follow-up appointment at this rechecked and adjusted. Follow-up with primary care for additional evaluation and treatment including possible H. pylori testing. Return if you worsen including uncontrolled vomiting, vomiting blood, black stools, severe pain, fever of 100.4 or greater, or any other concerning or worsening symptoms. Prescriptions: Sucralfate [Carafate 1 gm Tablet] 1 gm PO QID #20 tablet Amlodipine Besylate [Norvasc 5 mg Tablet] 5 mg PO DAILY #30 tablet Famotidine [Pepcid 20 mg Tablet] 20 mg PO DAILY #20 tablet Promethazine HCl [Phenergan 25 mg Tablet] 25 mg PO Q6H PRN #20 tablet PRN Reason: Referrals: [facility] [Provider Group] - Follow up in 1 week GENE QUIÑONES MD [ACTIVE STAFF] - Follow up in 1 week
[2020-08-15 02:14] LABS: ABSOLUTE BASOPHILS # (AUTO) 0.1 10^3/uL (0.0-0.2); ABSOLUTE EOSINOPHILS # (AUTO) 0.3 10^3/uL (0.0-0.6); ABSOLUTE MONOCYTES (AUTO) 0.7 10^3/uL (0.1-1.4); ABSOLUTE NEUT (AUTO) 7.4 10^3/uL (1.7-8.2); BASOPHILS % (AUTO) 0.5 % (0-2); EOSINOPHILS % (AUTO) 2.4 % (0-6); HEMATOCRIT 43.9 % (37.9-51.0); HEMOGLOBIN 15.3 g/dL (13.5-17.0); LYMPHOCYTES % (AUTO) 25.9 % (13-45); MEAN CORPUSCULAR HEMOGLOBIN 28.1 pg (27.0-33.4); MEAN CORPUSCULAR HGB CONC 34.8 g/dL (32.0-36.0); MEAN CORPUSCULAR VOLUME 81 fl (80-97); MONOCYTES % (AUTO) 6.5 % (3-13); PLATELET COUNT 236 10^3/uL (150-450); RED BLOOD COUNT 5.42 10^6/uL (4.35-5.55); RED CELL DISTRIBUTION WIDTH 15.4 % (11.5-14.0); SEGMENTED NEUTROPHILS % (AUTO) 64.7 % (42-78); TOTAL CELLS COUNTED % (AUTO) 100 %; WHITE BLOOD COUNT 11.4 10^3/uL (4.0-10.5)
[2020-08-15 02:29] LABS: ALBUMIN 4.2 g/dL (3.5-5.0); ALKALINE PHOSPHATASE 105 U/L (38-126); ANION GAP 9 (5-19); ASPARTATE AMINO TRANSFERASE 31 U/L (17-59); BILIRUBIN,DIRECT 0.1 mg/dL (0.0-0.4); BILIRUBIN,TOTAL 0.5 mg/dL (0.2-1.3); BLOOD UREA NITROGEN 14 mg/dL (7-20); CARBON DIOXIDE 20 mmol/L (22-30); CHLORIDE 109 mmol/L (98-107); GLUCOSE 132 mg/dL (75-110); POTASSIUM 4.4 mmol/L (3.6-5.0); TOTAL PROTEIN 7.4 g/dL (6.3-8.2)
[2020-08-15 02:36] LABS: APPEARANCE,URINE CLEAR; BILIRUBIN,URINE NEGATIVE (NEGATIVE); COLOR,URINE YELLOW; GLUCOSE, URINE NEGATIVE (NEGATIVE); KETONES,URINE NEGATIVE (NEGATIVE); LEUKOCYTE ESTERASE,URINE NEGATIVE (NEGATIVE); NITRITE,URINE NEGATIVE (NEGATIVE); PROTEIN,URINE 30 mg/dL (NEGATIVE); URINE SPECIFIC GRAVITY 1.021
[2020-08-15] MEDS ORDERED: SUCRALFATE 1 GM TABLET PO ONE (03:13)
[2020-08-15] MEDS ORDERED: OXYCODONE HCL IR 5 MG TABLET PO ONE (03:13)
[2020-08-15] MEDS ORDERED: PROMETHAZINE HCL 25 MG TABLET PO ONE (03:13)
--- NOTE | 2020-08-15 03:17 | RADIOLOGY REPORT (SQ) ---
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 Comparison: Chest radiograph from 12/10/2019 Findings: The cardiomediastinal silhouette is normal in size. No pneumothorax is seen. No acute airspace opacities are seen. No discrete pleural effusion is apparent. Impression: No acute airspace opacities are seen.
[2020-08-15] MEDS ORDERED: HYDROCODONE/ACETAMINOPHEN 5-325 MG (6 TAB/ER DISP) PO PRN (03:52)
[2020-08-15 04:17] VITALS: BP 151/109
== END 2020-08-15 04:25 | disposition home or self-care (01) ==
LOC: ER 01:20
DX: R10.13 Epigastric pain (principal); R10.812 Left upper quadrant abdominal tenderness; R11.2 Nausea with vomiting, unspecified; R00.0 Tachycardia, unspecified; I10 Essential (primary) hypertension; E11.9 Type 2 diabetes mellitus without complications; F17.200 Nicotine dependence, unspecified, uncomplicated; Z79.84 Long term (current) use of oral hypoglycemic drugs; Z87.11 Personal history of peptic ulcer disease; Z87.19 Personal history of other diseases of the digestive system; Z90.49 Acquired absence of other specified parts of digestive tract; Z88.8 Allergy status to other drugs, medicaments and biological substances
CPT/HCPCS: 99284; 96361; 96374; 96375; 36415; 83690; 85025; 80053; 81001; 84484; 71045; J1170; J2405; J7030

== ENCOUNTER 2020-09-11 10:25 | Emergency (ER) | payer SELFPAY ==
--- NOTE | 2020-09-11 10:55 | ER Document Report ---
ED Medical Screen (RME) - General Chief Complaint: Abdominal Pain Stated Complaint: UPPER ABDOMINAL PAIN,BACK PAIN Time Seen by Provider: 09/11/20 10:53 Mode of Arrival: Ambulatory Information source: Patient Notes: 40 male presents to ED for complaint of epigastric abdominal pain vomiting blood states he had pancreatitis and just got out of the hospital a week ago in [place]. He states she is not feeling any better he has not felt any better even when he was in the hospital. He states he does smoke 5 or 6 cigarettes a day he quit drinking about 8 months ago. He is alert oriented respirations regular nonlabored at this time. I have greeted and performed a rapid initial assessment of this patient. A comprehensive ED assessment and evaluation of the patient, analysis of test results and completion of medical decision making process will be conducted by an additional ED providers. TRAVEL OUTSIDE OF THE [place] IN LAST 30 DAYS: No - Related Data Allergies/Adverse Reactions: aspirin Adverse Reaction (Verified 01/20/20 01:55) has throat ulcers morphine Adverse Reaction (Verified 09/11/20 10:49) Past Medical History - Social History Frequency of alcohol use: None - Past Medical History Cardiac Medical History: Reports: Hx Hypercholesterolemia, Hx Hypertension Endocrine Medical History: Reports: Hx Diabetes Mellitus Type 2 Renal/ Medical History: Denies: Hx Peritoneal Dialysis GI Medical History: Reports: Hx Gastroesophageal Reflux Disease, Hx Hiatal Hernia, Hx Ulcer - Peptic ulcer Skin Medical History: Denies Hx MRSA Psychiatric Medical History: Reports: Hx Bipolar Disorder Past Surgical History: Reports: Hx Appendectomy, Hx Bowel Surgery - hernia repair, mesh [facility] on 10-16-12, Hx Orthopedic Surgery - right arm - Immunizations Hx Diphtheria, Pertussis, Tetanus Vaccination: Yes Physical Exam - Vital signs Vitals: Temp Pulse Resp BP Pulse Ox 98.4 F 100 20 158/105 H 97 09/11/20 10:35 09/11/20 10:35 09/11/20 10:35 09/11/20 10:35 09/11/20 10:35 Course - Vital Signs Vital signs: Temp Pulse Resp BP Pulse Ox 98.4 F 100 20 158/105 H 97 09/11/20 10:35 09/11/20 10:35 09/11/20 10:35 09/11/20 10:35 09/11/20 10:35
[2020-09-11] MEDS ORDERED: NORMAL SALINE 1000 ML 1,000 ML IV ONE (10:56)
[2020-09-11] MEDS ORDERED: ONDANSETRON 4 MG TAB.RAPDIS PO ONE (10:56)
[2020-09-11 12:08] LABS: APPEARANCE,URINE CLEAR; BILIRUBIN,URINE NEGATIVE (NEGATIVE); COLOR,URINE YELLOW; GLUCOSE, URINE 150 mg/dL (NEGATIVE); KETONES,URINE NEGATIVE (NEGATIVE); LEUKOCYTE ESTERASE,URINE NEGATIVE (NEGATIVE); NITRITE,URINE NEGATIVE (NEGATIVE); PROTEIN,URINE 100 mg/dL (NEGATIVE); URINE SPECIFIC GRAVITY 1.027; UROBILINOGEN,URINE NEGATIVE mg/dL (<2.0)
[2020-09-11 12:11] LABS: ABSOLUTE EOSINOPHILS # (AUTO) 0.2 10^3/uL (0.0-0.6); ABSOLUTE LYMPHOCYTES (AUTO) 1.7 10^3/uL (0.5-4.7); ABSOLUTE MONOCYTES (AUTO) 0.4 10^3/uL (0.1-1.4); BASOPHILS % (AUTO) 0.3 % (0-2); EOSINOPHILS % (AUTO) 1.9 % (0-6); HEMOGLOBIN 15.3 g/dL (13.5-17.0); LYMPHOCYTES % (AUTO) 18.3 % (13-45); MEAN CORPUSCULAR HEMOGLOBIN 28.8 pg (27.0-33.4); MEAN CORPUSCULAR HGB CONC 35.7 g/dL (32.0-36.0); MEAN CORPUSCULAR VOLUME 81 fl (80-97); MONOCYTES % (AUTO) 4.5 % (3-13); PLATELET COUNT 241 10^3/uL (150-450); RED BLOOD COUNT 5.33 10^6/uL (4.35-5.55); RED CELL DISTRIBUTION WIDTH 15.5 % (11.5-14.0); TOTAL CELLS COUNTED % (AUTO) 100 %; WHITE BLOOD COUNT 9.4 10^3/uL (4.0-10.5)
[2020-09-11 12:21] LABS: ALBUMIN 4.1 g/dL (3.5-5.0); ALKALINE PHOSPHATASE 112 U/L (38-126); ANION GAP 9 (5-19); ASPARTATE AMINO TRANSFERASE 26 U/L (17-59); BILIRUBIN,TOTAL 0.6 mg/dL (0.2-1.3); BLOOD UREA NITROGEN 14 mg/dL (7-20); CALCIUM 9.4 mg/dL (8.4-10.2); CARBON DIOXIDE 22 mmol/L (22-30); CHLORIDE 105 mmol/L (98-107); GLUCOSE 250 mg/dL (75-110); POTASSIUM 4.3 mmol/L (3.6-5.0); TOTAL PROTEIN 7.4 g/dL (6.3-8.2)
--- NOTE | 2020-09-11 14:50 | RADIOLOGY REPORT (SQ) ---
EXAM DESCRIPTION: U/S ABDOMEN LTD W/DOPPLER IMAGES COMPLETED DATE/TIME: 09/11/2020 1:16 pm REASON FOR STUDY: Pancreatitis. Recently treated for pancreatitis 1 week ago in [place]. COMPARISON: CT abdomen and pelvis, 05/06/2020 TECHNIQUE: Dynamic and static grayscale images acquired of the abdomen and recorded on PACS. Additio nal selected color Doppler and spectral images recorded. LIMITATIONS: None. FINDINGS: PANCREAS: Mildly heterogeneous appearance of the pancreas with no focal pancreatic mass. No pancreatic ductal dilation. Tail of the pancreas is obscured by bowel gas. No peripancreatic flu id. LIVER: Mild increased echogenicity throughout the hepatic parenchyma. No focal hepatic mass. LIVER VASCULATURE: Normal directional flow of the main portal vein and hepatic veins. GALLBLADDER: Surgically absent. ULTRASOUND-DETECTED WELLS'S SIGN: NA INTRAHEPATIC DUCTS AND COMMON DUCT: CBD and intrahepatic ducts normal caliber. No filling defects. INFERIOR VENA CAVA: Normal flow. AORTA: No aneurysm. RIGHT KIDNEY: Normal size. Normal echogenicity. No solid or suspicious masses. No hydronephrosis. No calcifications. PERITONEAL AND RIGHT PLEURAL SPACE: No ascites or effusions. OTHER: No other significant findings. IMPRESSION: 1. Mildly heterogeneous appearance of the pancreas which can be seen with pancreatitis. No peripancr eatic fluid or inflammatory change. The tail of the pancreas is poorly visualized. Clinical correla tion and correlation with laboratory values recommended. 2. Mild hepatic steatosis. 3. Status post cholecystectomy. TECHNICAL DOCUMENTATION: JOB ID: [id number] 2010 [employer] ([employer] All Rights Reserved Reading location - IP/workstation name: [email or web address]
--- NOTE | 2020-09-11 15:46 | EKG REPORT ---
SEVERITY:- BORDERLINE ECG - SINUS TACHYCARDIA PROBABLE LEFT ATRIAL ABNORMALITY BORDERLINE LEFT AXIS DEVIATION : Confirmed by: Kenan Corral MD 11-Sep-2020 15:45:48
[2020-09-11] MEDS ORDERED: HYDROMORPHONE HCL INJ/PF 2 MG/ML AMPULE IV ONE (17:46)
--- NOTE | 2020-09-11 17:46 | ER Document Report ---
ED GI/ - General Chief Complaint: Abdominal Pain Stated Complaint: UPPER ABDOMINAL PAIN,BACK PAIN Time Seen by Provider: 09/11/20 10:53 Mode of Arrival: Ambulatory Information source: Patient Notes: 40-year-old man presenting to the emergency department with a history of pancreatitis in the past. He was recently admitted in the hospital in [place] for pancreatitis. He began having some increased abdominal pain and nausea over the past week. He has not been drinking alcohol according to the patient and realizes that his liver which may be showing signs of cirrhosis as well as the pancreatic flareups are a serious manner. TRAVEL OUTSIDE OF THE [place] IN LAST 30 DAYS: No - Related Data Allergies/Adverse Reactions: aspirin Adverse Reaction (Verified 01/20/20 01:55) has throat ulcers morphine Adverse Reaction (Verified 09/11/20 10:49) Past Medical History - General Information source: Patient - Social History Smoking Status: Current Every Day Smoker Frequency of alcohol use: None Family History: Reviewed & Not Pertinent - Past Medical History Cardiac Medical History: Reports: Hx Hypercholesterolemia, Hx Hypertension Endocrine Medical History: Reports: Hx Diabetes Mellitus Type 2 Renal/ Medical History: Denies: Hx Peritoneal Dialysis GI Medical History: Reports: Hx Gastroesophageal Reflux Disease, Hx Hiatal Hernia, Hx Ulcer - Peptic ulcer Skin Medical History: Denies Hx MRSA Psychiatric Medical History: Reports: Hx Bipolar Disorder Past Surgical History: Reports: Hx Appendectomy, Hx Bowel Surgery - hernia repair, mesh [facility] on 10-16-12, Hx Orthopedic Surgery - right arm - Immunizations Hx Diphtheria, Pertussis, Tetanus Vaccination: Yes Review of Systems - Review of Systems Notes: Constitutional: Negative for fever. HENT: Negative for sore throat. Eyes: Negative for visual changes. Cardiovascular: Negative for chest pain. Respiratory: Negative for shortness of breath. Gastrointestinal: See HPI Genitourinary: Negative for dysuria. Musculoskeletal: Negative for back pain. Skin: Negative for rash. Neurological: Negative for headaches, weakness or numbness. 10 point ROS negative except as marked above and in HPI. Physical Exam - Vital signs Vitals: Temp Pulse Resp BP Pulse Ox 98.4 F 100 20 158/105 H 97 09/11/20 10:35 09/11/20 10:35 09/11/20 10:35 09/11/20 10:35 09/11/20 10:35 - Notes Notes: PHYSICAL EXAMINATION: Physical Exam: General: Well-nourished well-developed 40-year-old male distress secondary to abdominal pain. HEENT: NC/AT, nonicteric, pupils equal round and reactive to light, MM m oist,nares clear, oropharynx clear, airway patent Neck: supple, no adenopathy, no masses. Good range of motion Lungs: clear, no wheezing, no rales no rhonchi CVS: Regular rate and rhythm no murmur gallop or rub Abdomen: Soft, active, mild tenderness gastric region, no rebound or guarding., no masses, no hepatosplenomegaly Ext: No edema, clubbing or cyanosis. Neuro: Alert and responsive, moving all 4 extremities on command, cranial nerves intact, no focal findings Skin: Intact no open lesions, no rash Course - Re-evaluation Re-evalutation: 09/11/20 19:39 Patient with a history of pancreatitis presenting to the emergency department today with solved abdominal pain. He was hospitalized in [place] a week ago today the lipase is 432, ultrasound reveals some heterogeneity of the pancreas. He is also hypertensive and has not been taking his clonidine. After some discussion I explained to the patient that alcohol will trigger the pancreatitis and make it much worse. Presently he could use a light diet, antacids, and pain medications as an outpatient the. Episode may resolve. He has an appointment with his primary care doctor 24 September. I have asked him to avoid alcohol use and to follow-up during that appointment. He is also aware that if his symptoms are worsening he can return to the hospital for further evaluation. - Vital Signs Vital signs: Temp Pulse Resp BP Pulse Ox 97.8 F 80 20 160/106 H 98 09/11/20 18:56 09/11/20 18:56 09/11/20 10:35 09/11/20 18:56 09/11/20 18:56 - Laboratory Results Result Diagrams: 09/11/20 11:20 09/11/20 11:20 Laboratory Results Interpreted: 09/11/20 09/11/20 09/11/20 11:20 11:20 11:20 RDW 15.5 H Sodium 135.5 L Glucose 250 H Lipase 466.1 H Urine Protein 100 H Urine Glucose (UA) 150 H Urine Blood SMALL H 09/11/20 19:41 I have reviewed laboratory data and used this information for the treatment decisions regarding the patient. Critical Laboratory Results Reviewed: No Critical Results - Radiology Results Radiology Results Interpreted: 09/11/20 19:41 Abdomen Ultrasound 09/11/20 10:53 IMPRESSION: 1. Mildly heterogeneous appearance of the pancreas which can be seen with pancreatitis. No peripancreatic fluid or inflammatory change. The tail of the pancreas is poorly visualized. Clinical correlation and correlation with laboratory values recommended. 2. Mild hepatic steatosis. 3. Status post cholecystectomy. Critical Radiology Results Reviewed: No Critical Results Discharge - Discharge Clinical Impression: Abdominal pain Qualifiers: Abdominal location: epigastric Qualified Code(s): R10.13 - Epigastric pain Pancreatitis, chronic Qualifiers: Pancreatitis type: alcohol induced Qualified Code(s): K86.0 - Alcohol-induced chronic pancreatitis Hypertension Qualifiers: Hypertension type: unspecified Qualified Code(s): I10 - Essential (primary) hypertension Condition: Good Disposition: HOME, SELF-CARE Instructions: Antacid Therapy ([facility]), Antinausea Medication ([facility]) Additional Instructions: You are seen in the emergency department today with mild chronic pancreatitis. Please avoid all use as it will make the symptoms worse and likely lead to hospitalization. Use the medications as prescribed omeprazole, [place], Zofran. Please push fluids and follow-up with your primary care doctor as needed. It is important to take your blood pressure medications as prescribed in order to control your blood pressure and reduce the risk for stroke. Symptoms are worsening or if you have other concerns you may return to the emergency department for further evaluation and treatment HOME CARE INSTRUCTIONS & INFORMATION: Thank you for choosing us for your [facility] needs. We hope you're satisfied with the care you received. After you leave, you must properly care for your problem and, at the same time, observe its progress. Any condition can change. Some illnesses can change rapidly over hours or days. If your condition worsens, return to the Emergency Department or see your physician promptly. ABOUT YOUR X-RAYS AND EKG'S: If you had an EKG or X-rays taken, they have been read by the Emergency Physician. The X-rays and EKG's will also be read by a Radiologist or Medical Care Manager within 24 hours. If discrepancies are noted, you will be notified by telephone. Please be certain the ED has a correct telephone number & address where you can be reached. Also, realize that some fractures or abnormalities do not show up on initial X-rays. If your symptoms continue, see your physician. ABOUT YOUR LABORATORY TEST: If you had laboratory tests, the results have been reviewed by the Emergency Physician. Some test results (for example cultures) may not be available for several days. You will be contacted if any test result shows you need additional treatment. Please be certain the ED has a correct telephone number and address where you can be reached. ABOUT YOUR MEDICATIONS: You will receive instructions on how to take your medicine on the prescription label you receive. Additional information may be provided by the Pharmacy. If you have questions afterwards, call the ED for clarification or further instructions. Some prescribed medications may cause drowsiness. Do not perform tasks such as driving a car or operating machinery without consulting your Pharmacist. If you feel you need a refill of pain medication, your condition will need re-evaluation. Please do not call for a refill of any medication. ABOUT YOUR SIGNATURE: Signature of this document acknowledges to followin. Understanding that you received emergency treatment and that you may be released before al medical problems are known or treated. Please be certain the ED has a correct phone number & address where you can be reached. 2. Acknowledgement that you will arrange for follow-up care as recommended. 3. Authorization for the Emergency Physician to provide information to your follow-up Physician in order to maximize your care. AT ANY TIME, IF YOUR SYMPTOMS CHANGE SIGNIFICANTLY OR WORSEN OR YOU DEVELOP NEW SYMPTOMS, RETURN TO THE EMERGENCY DEPARTMENT IMMEDIATELY FOR RE-EVALUATION. OUR GOAL IS TO PROVIDE EXCELLENT MEDICAL CARE! WE HOPE THAT WE HAVE MET YOUR EXPECTATIONS DURING YOUR EMERGENCY DEPARTMENT VISIT AND THAT YOU FEEL YOU HAVE RECEIVED EXCELLENT CARE! Prescriptions: Hydrocodone/Acetaminophen [[place] 5-325 mg Tablet] 1 tab PO Q6 PRN #10 tablet PRN Reason: Omeprazole 40 mg PO DAILY #30 capsule. Ondansetron [Zofran Odt 4 mg Tablet] 1 - 2 tab PO Q4H PRN #15 tab.rapdis PRN Reason: For Nausea/Vomiting
[2020-09-11] MEDS ORDERED: ONDANSETRON HCL INJ/PF 4 MG/2 ML SDV IV ONE (17:54)
[2020-09-11] MEDS ORDERED: CLONIDINE HCL 0.2 MG TABLET PO ONE (18:26)
[2020-09-11] MEDS ORDERED: HYDROCODONE/ACETAMINOPHEN 5-325 MG (6 TAB/ER DISP) PO PRN (19:47)
[2020-09-11 20:07] VITALS: BP 159/93
== END 2020-09-11 20:13 | disposition home or self-care (01) ==
LOC: ER 10:25
DX: K86.0 Alcohol-induced chronic pancreatitis (principal); R10.13 Epigastric pain; R10.10 Upper abdominal pain, unspecified; I10 Essential (primary) hypertension; M54.9 Dorsalgia, unspecified; F17.200 Nicotine dependence, unspecified, uncomplicated; E78.00 Pure hypercholesterolemia, unspecified; E11.9 Type 2 diabetes mellitus without complications; Z90.49 Acquired absence of other specified parts of digestive tract
CPT/HCPCS: 93005; 99285; 96361; 96374; 96375; 86900; 86901; 36415; 86850; 83690; 85025; 80053; 81001; 76705; 93976; 93010; J1170; J2405; J7030